=== PATIENT | female | born 1945 | race Caucasian/White ===

== ENCOUNTER → 2017-02-24 | Outpatient (CLI) | payer OTHER | LOC: RAD 11:31 | DX: Z12.31 Encounter for screening mammogram for malignant neoplasm of breast (principal) ==

== ENCOUNTER → 2017-03-09 | Outpatient (CLI) | payer OTHER | LOC: RAD 05:54 | DX: R92.2 Inconclusive mammogram (principal) ==

== ENCOUNTER → 2018-04-28 | Outpatient (CLI) | payer OTHER | LOC: RAD 13:28 | DX: Z12.31 Encounter for screening mammogram for malignant neoplasm of breast (principal) ==

== ENCOUNTER → 2019-05-20 | Outpatient (CLI) | payer OTHER | LOC: RAD 01:53 | DX: Z12.31 Encounter for screening mammogram for malignant neoplasm of breast (principal) ==

== ENCOUNTER → 2021-01-03 | Outpatient (CLI) | payer OTHER | LOC: BC 09:08 | PROVIDERS: ATTEND Internal Medicine | DX: Z12.31 Encounter for screening mammogram for malignant neoplasm of breast (principal); N64.89 Other specified disorders of breast ==